=== PATIENT | male | born 1990 | race Caucasian/White ===

== ENCOUNTER 2016-09-02 11:29 | Emergency (ER) | payer OTHER ==
--- NOTE | 2016-09-02 12:14 | RAD ---
ANKLE-RIGHT 3 VIEW History: Twisting injury. Lateral pain. Comparison: None. Findings: Views of the right ankle were obtained.The osseous structures appear to be intact. The mortise joint is normal. The talar dome contour appears to be within that expected. No focal soft tissue abnormalities are identified. Prominent lateral soft tissue swelling is present. There is a sclerotic focus within the central to posterior aspect of the calcaneus. Impression: 1. No definitive fracture visualized. 2. Prominent lateral soft tissue swelling. 3. A probable bone island within the central to posterior aspect of the calcaneus.
[2016-09-02] MEDS ORDERED: IBUPROFEN 600 MG TABLET ONE (12:56)
== END 2016-09-02 13:16 | disposition home or self-care (01) ==
LOC: ED 11:29
DX: S93.401A Sprain of unspecified ligament of right ankle, initial encounter (principal); W18.30XA Fall on same level, unspecified, initial encounter; Y93.02 Activity, running
CPT/HCPCS: 73610; 99283 ×2; A9270